=== PATIENT | male | born 1995 | race Two or more races ===

== ENCOUNTER 2022-03-04 18:45 | Emergency (ER) | payer SELFPAY ==
[~2022-03-04] VITALS: Ht 170.2 cm; Wt 320.0 kg
[2022-03-04] MEDS ORDERED: NAPROXEN 500 MG TABLET PO STA (19:11)
[2022-03-04] MEDS ORDERED: MORPHINE SULFATE 4 MG/ML INJ. IVP ONE (19:15)
[2022-03-04] MEDS ORDERED: diazePAM 5 MG TABLET PO ONE (19:15)
--- NOTE | 2022-03-04 19:51 | RAD ---
PQRS Compliance Statement: One or more of the following individualized dose reduction techniques were utilized for this examinat ion: 1. Automated exposure control 2. Adjustment of the mA and/or kV according to patient size 3. Use of iterative reconstruction technique CT LUMBAR SPINE WO Clinical Indication: Reason: fall pain / Spl. Instructions: / History: Comparison: None. TECHNIQUE: Helical CT imaging of the lumbar spine is performed without IV contrast. Findings: No acute fracture or malalignment of the lumbar spine is seen. The patient is leaning to the right. D efinite lumbar scoliosis is not seen. The vertebral body heights are maintained. The disc spaces are maintained. Sacroiliac joints are symmetric. The central canal appears narrow in the lumbar spine. Qu estion whether there are congenitally short pedicles. Limited visualization of the retroperitoneum is unremarkable. IMPRESSION: There is no acute fracture or malalignment of the lumbar spine. Electronically signed by: Kosta Hilton MD (03/04/2022 7:49 PM) [facility]
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
[2022-03-04] MEDS ORDERED: CYCL10TA19 PO (21:37)
[2022-03-04] MEDS ORDERED: METH4TAB2 PO (21:37)
[2022-03-04] MEDS ORDERED: NAPR-514 PO (21:37)
[2022-03-04 21:40] VITALS: BP 147/64
== END 2022-03-04 22:21 | disposition home or self-care (01) ==
LOC: ER 18:45
DX: M54.50 Low back pain, unspecified (principal); G89.11 Acute pain due to trauma; W18.09XA Striking against other object with subsequent fall, initial encounter; Y93.89 Activity, other specified; Y92.89 Other specified places as the place of occurrence of the external cause; Y99.8 Other external cause status
CPT/HCPCS: 72131; 96374; 99285; J2270